=== PATIENT | female | born 1955 | race Asian ===

== ENCOUNTER → 2022-03-26 | Outpatient (CLI) | payer OTHER ==
[~2022-03-26] MED LIST: CORDROL20 MG PO; THERAPEUTIC VIT1 CAP PO
== END ==
LOC: MC.RAD 11:15
DX: Z12.31 Encounter for screening mammogram for malignant neoplasm of breast (principal)

== ENCOUNTER → 2022-04-30 | Outpatient (CLI) | payer OTHER | LOC: MHCPAIN 13:11 | DX: M25.511 Pain in right shoulder (principal); M17.11 Unilateral primary osteoarthritis, right knee | CPT/HCPCS: G0463 ==

== ENCOUNTER → 2022-07-30 | Outpatient (CLI) | payer MEDICARE | LOC: MHCPAIN 13:35 | DX: M25.511 Pain in right shoulder (principal) | CPT/HCPCS: G0463 ==

== ENCOUNTER 2023-02-24 14:00 | Outpatient (RCR) | payer MEDICARE | END 2023-02-26 | disposition home or self-care (01) | LOC: PT.GENESIS | DX: M81.0 Age-related osteoporosis without current pathological fracture (principal); R53.1 Weakness ==

== ENCOUNTER 2023-03-24 14:30 | Outpatient (RCR) | payer MEDICARE | END 2023-03-27 15:00 | disposition home or self-care (01) | LOC: PT.GENESIS 14:30 | DX: M81.0 Age-related osteoporosis without current pathological fracture (principal); R53.1 Weakness ==

== ENCOUNTER 2023-11-10 10:45 | Outpatient (RCR) | payer MEDICARE | END 2023-11-27 | disposition home or self-care (01) | LOC: PT.GENESIS | DX: M25.561 Pain in right knee (principal) ==

== ENCOUNTER 2024-04-22 11:35 | Emergency (ER) | payer MEDICARE ==
[~2024-04-22] VITALS: Ht 149.9 cm; Wt 46.4 kg
[2024-04-22 11:51] VITALS: TEMP 98.1
[2024-04-22 12:53] LABS: BASO % 0.5 % (0.0-2.0); EOS # 0.1 K/mm3 (0.0-0.7); EOS % 1.6 % (0.0-4.0); GRAN # 3.6 K/mm3 (1.4-6.5); GRAN % 59.3 % (42.2-75.2); HEMATOCRIT 43.9 % (37.0-47.0); HEMOGLOBIN 14.5 g/dl (12.5-16.0); LYMPH # 1.9 K/mm3 (1.2-3.4); LYMPH % 31.2 % (20.0-51.0); MEAN CELL VOLUME 92 fl (80.0-100.0); MEAN CORPUSCULAR HEMOGLOBIN 30 pg (27-31); MEAN CORPUSCULAR HGB CONC 33 g/dl (33.0-37.0); MEAN PLATELET VOLUME 9.7 fl (7.4-10.4); MONO # 0.4 K/mm3 (0.1-0.6); MONO % 7.2 % (1.7-9.3); PLATELET COUNT 259 K/mm3 (130-400); RED BLOOD COUNT 4.78 M/mm3 (4.10-5.30); REDCELL DISTRIBUTION WIDTH-CV 12.5 % (11.5-14.5)
[2024-04-22 12:56] LABS: PROTHROMBIN TIME 11.3 SECONDS (9.7-12.8)
[2024-04-22 13:15] LABS: ALBUMIN 4.4 g/dL (3.4-4.8); BILIRUBIN,TOTAL 0.7 mg/dL (0.2-1.2); CALCIUM 10.2 mg/dL (8.4-10.2); CREATININE, serum 0.82 mg/dL (0.57-1.11); MAGNESIUM 2.4 mg/dL (1.6-2.6); POTASSIUM 4.2 mEq/L (3.5-4.5); TOTAL PROTEIN 8.6 g/dl (6.2-8.1)
[2024-04-22 13:22] LABS: TROPONIN-I 0.03 ng/mL (0.00-0.033)
[2024-04-22 13:50] LABS: THYROID STIMULATING HORMONE 0.89 uIU/mL (0.350-4.940)
[2024-04-22] MEDS ORDERED: Iohexol 300 - 100 ML VIAL IV ONE (13:51)
[2024-04-22 13:52] LABS: URINE APPEARANCE CLEAR (CLEAR/HAZY); URINE BLOOD NEGATIVE (NEGATIVE); URINE COLOR YELLOW (YELLOW); URINE GLUCOSE NEGATIVE (NEGATIVE); URINE KETONE NEGATIVE (NEGATIVE); URINE NITRATE NEGATIVE (NEGATIVE); URINE PROTEIN(semi-quant) NEGATIVE (NEGATIVE); URINE UROBILINOGEN 0.2 E.U/dL (0.2-1.0)
[2024-04-22] MEDS ORDERED: NS 100 ML IV SCH (13:52)
[2024-04-22 14:34] LABS: COLLECTION METHOD CLEAN CATCH
[2024-04-22 15:43] VITALS: BP 136/93
[2024-04-22] MEDS ORDERED: PEPCID 20MG TAB20 MG PO (17:29)
[2024-04-22 17:32] VITALS: PULSE 94
== END 2024-04-22 17:32 | disposition home or self-care (01) ==
LOC: COL.ER 11:35
PROVIDERS: Family Medicine
DX: J98.59 Other diseases of mediastinum, not elsewhere classified (principal)
CPT/HCPCS: Q9967